=== PATIENT | male | born 1975 | race African-American/Black ===

== ENCOUNTER 2017-03-12 03:21 | Emergency (ER) | payer SELFPAY ==
[~2017-03-12 03:21] MED LIST: BACTRIM DS TABL1 TA1 PO; BACTROBAN15 GM TOP; KEFLEX500 MG PO; LORTAB 5/500 TA1 TA1 PO; LOTRISONE LOTIO30 ML TOP; NORCO 5/325 TAB1 TAB PO
== END 2017-03-12 06:57 | disposition home or self-care (01) ==
LOC: CED 03:21
DX: L02.01 Cutaneous abscess of face (principal); L72.3 Sebaceous cyst; F17.210 Nicotine dependence, cigarettes, uncomplicated
CPT/HCPCS: 10060; 99283